=== PATIENT | male | born 1960 | race American Indian/Alaskan Native ===

== ENCOUNTER 2017-01-30 11:17 | Emergency (ER) | payer MEDICAID ==
[2017-01-30 11:47] VITALS: BP 102/66
[2017-01-30] MEDS ORDERED: NORCO 5/325 PO ONE (12:46)
--- NOTE | 2017-01-30 13:22 | XRay Report ---
LEFT KNEE RADIOGRAPHS INDICATION: Left knee pain and weakness. COMPARISON: None similar. FINDINGS: AP, lateral and oblique left knee radiographs demonstrate intact bony articulation and appearance. Normal soft tissues without significant suprapatellar effusion. Superior patellar enthesophyte. CONCLUSION: No acute left knee radiographic abnormality with slight degenerative changes. Thank you for the opportunity to participate in this patient's care.
--- NOTE | 2017-01-30 14:17 | Emergency Department Report ---
Entered by MICHOACANO QUINTERO, acting as scribe for TEERSSA NOLASCO PA. ED Lower Extremity HPI - General Chief Complaint: Extremity Problem,Nontraumatic Stated Complaint: LT KNEE PAIN Time Seen by Provider: 01/30/17 12:17 Source: patient, family Mode of arrival: Wheelchair Limitations: Physical Limitation - History of Present Illness Initial Comments: 56 y/o male with a PMHx of diabetes mellitus presents to the ED c/o an acute episode of left knee pain that began 2 days ago. Rates pain a 7/10 in severity, which he describes as sharp in quality. Aggravated with movement and weight bearing, and alleviated with immobilization. Patient states his left knee keeps "giving out" .Denies left knee injury/trauma, head injury/trauma, headache, numbness, tingling, fever, chills, chest pain, and SOB. Patient is currently ambulatory with a cane due to chronic neck pain secondary to a neck fracture and surgery. Denies ever receiving an X-ray of left knee. Denies PMHx of CVA. FAHAD WILLIS Complaint: knee injury (left) Onset/Timin -: days(s) Injury: Knee: Left (pain and weakness with no injury) Type of Injury: unknown Place: home Severity: moderate Severity scale (0 -10): 7 Improves With: immobilization Worsens With: weight bearing, movement Context: other (unknown) Associated Symptoms: ambulatory (patient uses a cane to ambulate due to previous neck surgery and weakness to upper extremity.). denies: snap/pop sensation, swelling, numbness, tingling Treatments Prior to Arrival: other (none) - Related Data Previous Rx's Medication Instructions Recorded Last Taken Type traMADol [Ultram] 50 mg PO Q6HR PRN #20 tablet 01/30/17 Unknown Rx Allergies Allergy/AdvReac Type Severity Reaction Status Date / Time No Known Allergies Allergy Unverified 01/30/17 12:45 ED Review of Systems Comment: All other systems reviewed and negative Constitutional: denies: chills, fever Eyes: denies: eye pain, eye discharge, vision change ENT: denies: ear pain, throat pain Respiratory: denies: cough, orthopnea, shortness of breath, SOB with exertion, SOB at rest, stridor, wheezing Cardiovascular: denies: chest pain, palpitations, dyspnea on exertion, orthopnea , edema, syncope, paroxysmal nocturnal dyspnea Endocrine: no symptoms reported Gastrointestinal: denies: abdominal pain, nausea, vomiting, diarrhea Genitourinary: denies: urgency, dysuria Musculoskeletal: arthralgia (LT knee pain). denies: back pain, joint swelling, myalgia Skin: denies: rash, lesions Neurological: abnormal gait (he walks with a cane due to deformity from neck surgery). denies: headache, weakness, numbness, paresthesias Psychiatric: denies: anxiety, depression Hematological/Lymphatic: denies: easy bleeding, easy bruising ED Past Medical Hx - Past Medical History Previous Medical History?: Yes Hx Diabetes: Yes Additional medical history: Neck pain - Surgical History Past Surgical History?: Yes Additional Surgical History: Surgery, neck - Family History Family history: no significant - Social History Smoking Status: Never Smoker Substance Use Type: None - Medications Home Medications: Home Medications Medication Instructions Recorded Confirmed Last Taken Type traMADol [Ultram] 50 mg PO Q6HR PRN #20 tablet 01/30/17 Unknown Rx ED Physical Exam - General Limitations: No Limitations General appearance: alert, in no apparent distress - Head Head exam: Present: atraumatic, normocephalic - Eye Eye exam: Present: normal appearance, PERRL, EOMI Pupils: Present: normal accommodation - ENT ENT exam: Present: normal exam, mucous membranes moist, normal external ear exam - Neck Neck exam: Present: normal inspection, full ROM. Absent: tenderness, meningismus, lymphadenopathy, thyromegaly - Respiratory Respiratory exam: Present: normal lung sounds bilaterally. Absent: respiratory distress, wheezes, rales, rhonchi, stridor, chest wall tenderness, accessory muscle use, decreased breath sounds - Cardiovascular Cardiovascular Exam: Present: regular rate, normal rhythm, normal heart sounds. Absent: systolic murmur, diastolic murmur - GI/Abdominal GI/Abdominal exam: Present: soft, normal bowel sounds. Absent: distended, tenderness, guarding, rebound, rigid - Extremities Exam Extremities exam: Present: full ROM (painful, but full flexion and extension in LT knee), tenderness (lateral LT knee), normal capillary refill, other ( transferred to left second through fifth digit from a complication from neck fracture status post neck surgery.). Absent: normal inspection, pedal edema, joint swelling, calf tenderness - Expanded Lower Extremity Exam Left Hip exam: Present: normal inspection, full ROM, external rotation, internal rotation, pelvic stability. Absent: tenderness, swelling, abrasion, laceration , ecchymosis, deformity, crepidus, dislocation, erythema, shortening Upper Leg exam: Present: normal inspection, full ROM. Absent: tenderness, swelling, abrasion, laceration, ecchymosis, deformity, crepidus, dislocation, erythema Knee exam: Present: full ROM (painful, but full flexion and extension in LT knee ), tenderness (lateral LT knee), crepidus, pain w/ pronation/supination, pain/ laxity with valgus, pain/laxity with varus, full knee extension (passive range of motion with full knee flexion that is painful but unable to fully extend knee due to pain with active range of motion). Absent: normal inspection, swelling, abrasion, laceration, ecchymosis, deformity, dislocation, erythema, effusion, posterior draw sign Lower Leg exam: Present: normal inspection, full ROM. Absent: tenderness, swelling, abrasion, laceration, ecchymosis, deformity, crepidus, dislocation, erythema, palpable cord, Ric's sign Ankle exam: Present: normal inspection, full ROM. Absent: tenderness, swelling , abrasion, laceration, ecchymosis, deformity, crepidus, dislocation, erythema, anterior draw sign Foot/Toe exam: Present: normal inspection, full ROM. Absent: tenderness, swelling, abrasion, laceration, ecchymosis, deformity, crepidus, dislocation, erythema, amputation, puncture wound, foreign body, calcaneal tenderness, tenderness at base of 5th metatarsal, nail avulsion, subungual hematoma Neuro vascular tendon exam: Present: no vascular compromise, motor deficit (+4/ 5 strength). Absent: pulse deficit, abnormal cap refill, sensory deficit, tendon deficit, extremity cold to touch, pallor, abnormal 2-point discrimination , decreased fine/light touch, foot drop, peroneal nerve deficit, significant pain with passive ROM of distal joint Gait: Positive: observed and limited by pain - Back Exam Back exam: Present: normal inspection, full ROM. Absent: tenderness, CVA tenderness (R), CVA tenderness (L), muscle spasm, paraspinal tenderness, vertebral tenderness, rash noted - Neurological Exam Neurological exam: Present: alert, oriented X3, abnormal gait (due to LT knee pain and history of neck fracture with contracture and to left hand and fingers) , motor sensory deficit (left hand and fingers contracture with +4/5 movement to left hand and left knee.), reflexes normal - Psychiatric Psychiatric exam: Present: normal affect, normal mood - Skin Skin exam: Present: warm, dry, intact, normal color. Absent: rash ED Course Vital Signs 01/30/17 01/30/17 11:42 13:16 Temperature 97.9 F Pulse Rate 78 Respiratory 16 16 Rate Blood Pressure 102/66 O2 Sat by Pulse 99 Oximetry - Reevaluation(s) Reevaluation #1: 01/30/17 14:01 given [place] 5/325 mg 2 tablets by mouth in the emergency room for pain. - Orthopedic Splinting/Casting Injury #1 Side: left Lower Extremity Immobilizer: knee immobilizer Other Orthopedic Equipment: crutches ED Lower Extremity MDM - Radiology Data Radiology results: report reviewed No acute left knee radiographic abnormality with slight degenerative changes. Slip. Patellar and sees a 5. Normal soft tissue without significant supra patella effusion. - Medical Decision Making E course: Patient here reporting left knee pain that started a couple days ago. He reports weakness and pain to his left knee. X-ray report revealed no fracture or dislocation but he does have degenerative joint disease. Physical findings questionable for ligament injury he has pain with laxity in varus and valgus. Patient was given [place] 5/325 mg 2 tablets in the emergency room and to follow-up with orthopedic doctor in 2 days. He voices understanding the discharge diagnosis and treatment plan and discharged home with knee immobilizer and crutches. Diagnostic/labs: The x-ray report in radiology section Assessment/plan 1. Arthralgia left knee cannot rule out ligament injury therefore patient placed in knee immobilizer and given crutches 2. Osteoarthritis left knee Medication: Patient given [place] 5/325 2 tablets in the emergency room for pain which relieved this left knee pain. He was also given a report on x-ray results. Patient discharged home a prescription for Ultram. Started to follow-up with orthopedic doctor in 2 days. I instructed him to keep knee immobilizer on until he sees orthopedic doctor. ED Disposition Clinical Impression: Arthralgia of left knee Osteoarthritis of left knee Qualifiers: Osteoarthritis type: unspecified Qualified Code(s): M17.12 - Unilateral primary osteoarthritis, left knee Disposition: DC-01 TO HOME OR SELFCARE Is pt being admited?: No Does the pt Need Aspirin: No Condition: Stable Instructions: Arthralgia (ED), Osteoarthritis (ED), Knee Exercises (GEN), Knee Immobilizer (ED) Additional Instructions: follow-up with orthopedic doctor as discussed Do Not drive or operate heavy machinery while taking Ultram as this medication causes drowsiness Prescriptions: traMADol [Ultram] 50 mg PO Q6HR PRN #20 tablet PRN Reason: Pain Referrals: KATY CASTRO MD [Staff Physician] - 2-3 Days Forms: Accompanied Note, Work/School Release Form(ED) This documentation as recorded by the INGRID álvarez JASMINE,accurately reflects the service I personally performed and the decisions made by me,TERESSA NOLASCO PA.
== END 2017-01-30 15:01 | disposition home or self-care (01) ==
LOC: ED 11:17
DX: M17.12 Unilateral primary osteoarthritis, left knee (principal); E11.9 Type 2 diabetes mellitus without complications
CPT/HCPCS: 99283

== ENCOUNTER 2018-02-18 18:01 | Emergency (ER) | payer MEDICAID ==
[2018-02-18 18:10] VITALS: BP 92/65
--- NOTE | 2018-02-18 23:38 | XRay Report ---
FINAL REPORT PROCEDURE: XR FOOT 2V LT TECHNIQUE: LEFT foot radiographs, AP, lateral, and oblique views. CPT 76295 HISTORY: twisted, now painful, cannot bear weight COMPARISON: No prior studies are available for comparison. FINDINGS: There is evidence of hallux valgus deformity with subluxation of the 1st metatarsophalangeal joint. An acute fracture is not identified. An irregular calcification measuring 17 millimeters is noted along the anterior aspect of the tibiotalar joint. IMPRESSION: No acute fracture Hallux valgus deformity with mild degree subluxation 17 millimeter calcific density along the anterior aspect of the tail or tibial joint most likely represents synovial calcification
--- NOTE | 2018-02-18 23:40 | XRay Report ---
FINAL REPORT PROCEDURE: XR ANKLE 3+V LT TECHNIQUE: LEFT ankle radiographs, AP, lateral, and oblique views. CPT 51778 HISTORY: twisted, now painful, cannot bear weight COMPARISON: No prior studies are available for comparison. FINDINGS: Bony alignment and joint spaces are within normal limits. An acute fracture is not identified. An irregular calcification measuring 17 millimeters is noted along the anterior aspect of the tibiotalar joint. Mild degree soft tissue swelling is noted over the medial and lateral malleoli. IMPRESSION: No acute fracture 17 millimeter benign calcification along the anterior aspect of tibiotalar joint most likely represents synovial calcification. MRI may be recommended for further evaluation..
[2018-02-19] MEDS ORDERED: MOTRIN PO ONE (00:08)
--- NOTE | 2018-02-19 00:11 | Emergency Department Report ---
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 Patient comes in today complaining of left leg pain that started after he twisted his ankle. Patient states he cannot put any weight on his foot. Patient reports that he was walking up an incline when his left foot and rolled outward. Patient admits to swelling and pain. He reports his taken nothing for pain. In this happened about 7 PM on Saturday. Complaint: ankle injury -: This evening Time: 19:00 (02/18/18) Injury: Ankle: Left (swelling and pain) Type of Injury: eversion Place: street/outdoors Severity scale (0 -10): 9 Improves With: nothing Worsens With: weight bearing Context: walking Associated Symptoms: swelling - Related Data Previous Rx's Medication Instructions Recorded Last Taken Type traMADol [Ultram] 50 mg PO Q6HR PRN #20 tablet 01/30/17 Unknown Rx Ibuprofen [Motrin 600 MG tab] 600 mg PO Q8H PRN #30 tablet 02/19/18 Unknown Rx Allergies Allergy/AdvReac Type Severity Reaction Status Date / Time No Known Allergies Allergy Unverified 01/30/17 12:45 ED Review of Systems ROS: Stated complaint: LEFT LEG PAIN Other details as noted in HPI Comment: All other systems reviewed and negative Musculoskeletal: joint swelling (left ankle), arthralgia (left ankle) ED Past Medical Hx - Past Medical History Previous Medical History?: Yes Hx Diabetes: Yes Additional medical history: Neck pain. right arm paralysis after spinal surgery - Surgical History Past Surgical History?: Yes Additional Surgical History: Surgery, neck - Social History Smoking Status: Never Smoker Substance Use Type: None - Medications Home Medications: Home Medications Medication Instructions Recorded Confirmed Last Taken Type traMADol [Ultram] 50 mg PO Q6HR PRN #20 tablet 01/30/17 Unknown Rx Ibuprofen [Motrin 600 MG tab] 600 mg PO Q8H PRN #30 tablet 02/19/18 Unknown Rx ED Physical Exam - General Limitations: No Limitations General appearance: alert, in no apparent distress - Head Head exam: Present: atraumatic, normocephalic - Eye Eye exam: Present: EOMI - ENT ENT exam: Present: mucous membranes moist - Expanded Lower Extremity Exam Left Hip exam: Absent: tenderness, swelling Knee exam: Present: normal inspection, full ROM Lower Leg exam: Present: normal inspection, full ROM. Absent: tenderness Ankle exam: Present: full ROM, tenderness (lateral and medial malleolus), swelling (lateral malleolus and medial malleolus) Neuro vascular tendon exam: Present: no vascular compromise Gait: Positive: observed and limited by pain - Neurological Exam Neurological exam: Present: alert, oriented X3 - Psychiatric Psychiatric exam: Present: normal affect, normal mood - Skin Skin exam: Present: warm, dry, intact, normal color. Absent: rash ED Course Vital Signs 02/18/18 18:07 Temperature 97.4 F L Pulse Rate 93 H Respiratory 18 Rate Blood Pressure 92/65 O2 Sat by Pulse 97 Oximetry ED Lower Extremity MDM - Radiology Data Radiology results: report reviewed FINAL REPORT PROCEDURE: XR FOOT 2V LT TECHNIQUE: LEFT foot radiographs, AP, lateral, and oblique views. CPT 51159 HISTORY: twisted, now painful, cannot bear weight COMPARISON: No prior studies are available for comparison. FINDINGS: There is evidence of hallux valgus deformity with subluxation of the 1st metatarsophalangeal joint. An acute fracture is not identified. An irregular calcification measuring 17 millimeters is noted along the anterior aspect of the tibiotalar joint. IMPRESSION: No acute fracture Hallux valgus deformity with mild degree subluxation 17 millimeter calcific density along the anterior aspect of the tail or tibial joint most likely represents synovial calcification FINAL REPORT PROCEDURE: XR ANKLE 3+V LT TECHNIQUE: LEFT ankle radiographs, AP, lateral, and oblique views. CPT 71867 HISTORY: twisted, now painful, cannot bear weight COMPARISON: No prior studies are available for comparison. FINDINGS: Bony alignment and joint spaces are within normal limits. An acute fracture is not identified. An irregular calcification measuring 17 millimeters is noted along the anterior aspect of the tibiotalar joint. Mild degree soft tissue swelling is noted over the medial and lateral malleoli. IMPRESSION: No acute fracture 17 millimeter benign calcification along the anterior aspect of tibiotalar joint most likely represents synovial calcification. MRI may be recommended for further evaluation.. Transcribed By: [facility] Dictated By: THEODORA BARCENAS Electronically Authenticated By: THEODORA BARCENAS Signed Date/Time: 02/18/182338 DD/ 38 TD/TT: 02/18/182338 - Medical Decision Making Patient has been evaluated by this provider fast track. Ibuprofen ordered for pain management Seth bandage and ankle stirrup as well as crutches training. Discussed the patient to use ice take ibuprofen for pain and swelling in his symptoms persist to follow up with his primary care provider Critical care attestation.: If time is entered above; I have spent that time in minutes in the direct care of this critically ill patient, excluding procedure time. ED Disposition Clinical Impression: Moderate left ankle sprain Qualifiers: Encounter type: initial encounter Qualified Code(s): S93.402A - Sprain of unspecified ligament of left ankle, initial encounter Disposition: TO HOME OR SELFCARE Is pt being admited?: No Does the pt Need Aspirin: No Condition: Stable Instructions: Crutch Instructions (ED), Ibuprofen (By mouth), Ankle Sprain (ED) , Ankle Stirrup Splint (ED) Additional Instructions: Please take pain medication as needed. Please apply ice to help with pain. Please continue to elevate her left ankle and avoid putting heavyweight. Please use crutches and wear Seth bandage with ankle stirrup. If her symptoms persist or gets worse please follow-up with the primary care provider Prescriptions: Ibuprofen [Motrin 600 MG tab] 600 mg PO Q8H PRN #30 tablet PRN Reason: Pain, Moderate (4-6) Referrals: PRIMARY CARE, [Primary Care Provider] - 3-5 Days [facility] [Provider Group] - 3-5 Days
== END 2018-02-19 01:07 | disposition home or self-care (01) ==
LOC: ED 18:01
DX: S93.402A Sprain of unspecified ligament of left ankle, initial encounter (principal); E11.9 Type 2 diabetes mellitus without complications; X58.XXXA Exposure to other specified factors, initial encounter; Y93.89 Activity, other specified; Y92.89 Other specified places as the place of occurrence of the external cause; Y99.8 Other external cause status

== ENCOUNTER 2019-03-27 20:45 | Emergency (ER) | payer MEDICAID ==
[2019-03-27] MEDS ORDERED: NORCO 5/325 PO ONE (22:05)
[2019-03-27] MEDS ORDERED: XYLOCAINE 2% INFILTRATI STA (22:05)
--- NOTE | 2019-03-27 22:16 | Emergency Department Report ---
ED Head Trauma HPI - General Chief complaint: Wound/Laceration Stated complaint: HEAD LACERATION Time Seen by Provider: 03/27/19 22:02 Source: patient, EMS Mode of arrival: Stretcher Limitations: No Limitations - History of Present Illness MD Complaint: head injury, head pain -: Sudden Mechanism of Injury: mechanical fall Location: frontal Loss of Consciousness: no Previous Trauma to this Area: No Place: outdoors Radiation: none Severity: mild Quality: dull, aching Consistency: constant Provoking factors: none known Other Injuries: laceration Associated Symptoms: denies: confusion, amnesia, vision changes, vomiting, vertigo, syncope, tingling, neck pain - Related Data Previous Rx's Medication Instructions Recorded Last Taken Type traMADol [Ultram] 50 mg PO Q6HR PRN #20 tablet 01/30/17 Unknown Rx Ibuprofen [Motrin 600 MG tab] 600 mg PO Q8H PRN #30 tablet 02/19/18 Unknown Rx Chlorhexidine Gluconate [Hibiclens] 5 ml TP BID #236 liquid 03/28/19 Unknown Rx Allergies/Adverse reactions: Allergies Allergy/AdvReac Type Severity Reaction Status Date / Time No Known Allergies Allergy Unverified 01/30/17 12:45 ED Review of Systems ROS: Stated complaint: HEAD LACERATION Other details as noted in HPI Comment: All other systems reviewed and negative ED Past Medical Hx - Past Medical History Previous Medical History?: Yes Hx Diabetes: Yes Additional medical history: Neck pain. right arm paralysis after spinal surgery, arthritis - Surgical History Past Surgical History?: Yes Additional Surgical History: Surgery, neck - Social History Smoking Status: Current Every Day Smoker Substance Use Type: Alcohol - Medications Home Medications: Home Medications Medication Instructions Recorded Confirmed Last Taken Type traMADol [Ultram] 50 mg PO Q6HR PRN #20 tablet 01/30/17 Unknown Rx Ibuprofen [Motrin 600 MG tab] 600 mg PO Q8H PRN #30 tablet 02/19/18 Unknown Rx Chlorhexidine Gluconate [Hibiclens] 5 ml TP BID #236 liquid 03/28/19 Unknown Rx ED Physical Exam - General Limitations: No Limitations General appearance: alert, in no apparent distress - Head Head exam: Present: other - Expanded Head Exam Expanded Head exam: Present: laceration. Absent: racoon eyes, conroy's sign, tenderness of temporal artery, CSF rhinorrhea, CSF otorrhea 1 - Laceration to the left frontal region - Eye Eye exam: Present: normal appearance, PERRL, EOMI Pupils: Present: normal accommodation, irregular - ENT ENT exam: Present: normal exam, normal orophraynx, mucous membranes moist, TM's normal bilaterally - Neck Neck exam: Present: normal inspection, full ROM - Respiratory Respiratory exam: Present: normal lung sounds bilaterally. Absent: respiratory distress, rales, rhonchi, chest wall tenderness, accessory muscle use, decreased breath sounds - Cardiovascular Cardiovascular Exam: Present: regular rate, normal rhythm. Absent: systolic murmur, diastolic murmur, rubs, gallop - GI/Abdominal GI/Abdominal exam: Present: soft, normal bowel sounds - Rectal Rectal exam: Present: deferred - Extremities Exam Extremities exam: Present: normal inspection - Back Exam Back exam: Present: normal inspection - Neurological Exam Neurological exam: Present: alert, oriented X3, CN II-XII intact. Absent: normal gait, abnormal gait - Psychiatric Psychiatric exam: Present: normal affect, normal mood. Absent: anxious, flat affect, manic - Skin Skin exam: Present: warm, dry, intact, normal color. Absent: rash ED Course Vital Signs 03/27/19 03/27/19 20:45 22:35 Temperature 97.8 F Pulse Rate 87 Respiratory 12 18 Rate Blood Pressure 137/74 Blood Pressure 137/74 [Left] O2 Sat by Pulse 97 Oximetry - Procedure Description Procedures done: Head laceration. Draped sterile fashion anesthesia achieved with 2% lidocaine without epinephrine. 8 cm laceration with an arc edge with flap. 4-0 Prolene placed in simple fashion complications 9. We'll place a similar fashion around the flap 4. - Radiology Data Radiology results: report reviewed (no acute processes O CT scan noted) - Medical Decision Making 58-year-old -[place]ian male presents to the emergency department. Mechanical causing him to strike the left aspect of his head on the table resulting in a laceration was noted. CT scan was clear and the intracranial processes. The laceration was closed sutures medications advised to return in 5 days for possible suture removal. He remains neurologically intact throughout his emergency room visit. He was advised when to return to emergency department is able to ambulate under his own power - NEXUS Criteria Focal neurological deficit present: No Midline spinal tenderness present: No Altered level of consciousness: No Intoxication present: No Distracting injury present: Yes NEXUS results: C-Spine cannot be cleared clinically by these results. Imaging is required. Critical care attestation.: If time is entered above; I have spent that time in minutes in the direct care of this critically ill patient, excluding procedure time. ED Disposition Clinical Impression: Head injury, Laceration of head Disposition: DC-01 TO HOME OR SELFCARE Is pt being admited?: No Does the pt Need Aspirin: No Condition: Stable Instructions: Suture Care (ED), Laceration (ED), Minor Head Injury (ED) Additional Instructions: Please follow up in 5 days to be evaluated for possible suture removal Prescriptions: Chlorhexidine Gluconate [Hibiclens] 5 ml TP BID #236 liquid Referrals: [facility] [Provider Group] - 3-5 Days Forms: AMA Form
[2019-03-27] MEDS ORDERED: NACL 0.9% IR ONE (22:35)
--- NOTE | 2019-03-27 22:53 | Cat Scan Report ---
CT head without contrast INDICATION : Headache. TECHNIQUE: Axial imaging performed from the skull apex through the skull base without the use of con trast. All CT examinations performed at this facility utilize dose modulation, iterative reconstruct ion or weight-based dosing, when appropriate, to reduce radiation dose to as low as reasonably achiev able. COMPARISON: None FINDINGS: No acute intracranial hemorrhage or parenchymal abnormality. Ventricles are normal in si ze and appear symmetric. Focal laceration along the left frontal convexity. No underlying skull fra cture.. No acute osseous abnormality. Sinuses and mastoid air cells are clear. IMPRESSION: No acute intracranial abnormality. Soft tissue ulceration along the left frontal convexit y. Signer Name: Robi Rahman MD Signed: 03/27/2019 10:49 PM Workstation Name: [id number]
--- NOTE | 2019-03-27 22:56 | Cat Scan Report ---
CT cervical spine without contrast INDICATION: neck pain fall. Cervical spine pain TECHNIQUE: Axial imaging performed through the cervical spine without the use of contrast. Sagittal and coronal reconstructed images were also reviewed. All CT scans at this location are performed us ing CT dose reduction for ALARA by means of automated exposure control. COMPARISON: None FINDINGS: Alignment: Spinal alignment is normal. Bones: There is no acute osseous abnormality. Multilevel laminectomy identified from the C3, C4, C5, C6 and C7 levels. Multilevel enthesopathic changes are present. Soft tissues: No acute or significant incidental soft tissue abnormality. IMPRESSION: No acute abnormality. Signer Name: Robi Rahman MD Signed: 03/27/2019 10:51 PM Workstation Name: [id number]
[2019-03-27] MEDS ORDERED: TENIVAC IM ONE (23:00)
[2019-03-28 02:16] VITALS: BP 116/69
== END 2019-03-28 01:20 | disposition home or self-care (01) ==
LOC: ED 20:45
DX: S01.81XA Laceration without foreign body of other part of head, initial encounter (principal); E11.9 Type 2 diabetes mellitus without complications; M19.90 Unspecified osteoarthritis, unspecified site; F17.200 Nicotine dependence, unspecified, uncomplicated; Z98.890 Other specified postprocedural states; Z79.899 Other long term (current) drug therapy; W19.XXXA Unspecified fall, initial encounter; Y93.89 Activity, other specified; Y92.89 Other specified places as the place of occurrence of the external cause; Y99.8 Other external cause status
CPT/HCPCS: 70450; 72125; 90471; 90714